=== PATIENT | male | born 1965 | race Caucasian/White ===

== ENCOUNTER 2025-04-13 11:21 | Inpatient (IN) | payer OTHER, SELFPAY ==
[2025-04-13 03:28] VITALS: BP 155/110
--- NOTE | 2025-04-13 07:53 | ED.MUSCINJ ---
HPI-Injury
<Chavez Wayne MD, Resident - Last Filed: 04/13/25 09:37>
General
Chief Complaint: Musculo-Skeletal Complaint
Source: patient and family
Time Seen by Provider: 04/13/25 07:21
History of Present Illness-Injury
Initial Injury comments:
Patient is 58-year-old male with no significant PMH who presented to [place] ED for right second toe pain. Patient works as a print binding worker, and approximately 2 weeks ago he dropped a dresser on his right foot. He was wearing steel toed boots at the
time of injury, and he reported no immediate pain or swelling in his foot. However, the weight of the object was sent off but still in the boot, which close to press against his toe. Over the subsequent 2-3 days, patient developed severe pain and
swelling in his right second toe. Patient tried heating his foot in a warm bath, which provided minimal relief. Patient continued working, though his activity was limited due to the pain and swelling. While working, patient wrapped his toe to
prevent it from rubbing against surrounding tissue. Patient developed an ulcer on his right second toe. Pain and swelling gradually got worse over the next few days, with acute worsening of pain, swelling, and subjective fever last night that
prompted him to present to the ED. Patient has never had an episode of toe pain or swelling like this before. No fatigue, chills, or shortness of breath. Patient reports mild intermittent chest pain, which he says is normal for him and he does
not find concerning. No history of gout or vascular disease. Patient has a couple drinks per week, and he eats a broad diet that includes fruits and vegetables.
Past History
<Chavez Wayne MD, Resident - Last Filed: 04/13/25 09:37>
Past History
ED Past Medical History: None
ED Past Surgical History: Other (Inguinal hernia surgery)
Social History
Tobacco: Smoker
Alcohol: Occasional
Drug: None
Personal:
Living: with family
Employment: Employed
Family History
Family History: Other (Noncontributory)
Review of Systems
<Chavez Wayne MD, Resident - Last Filed: 04/13/25 09:37>
Review of Systems
Constitutional: Reports fever (Subjective); Denies fatigue or chills
Respiratory: Denies trouble breathing
Cardiac: Reports chest pain
ABD/GI: Denies abdominal pain, nausea, vomiting or diarrhea
Musculoskeletal: Reports joint pain and joint swelling
Neurological: Denies weakness or numbness
Phy Exam
<Chavez Wayne MD, Resident - Last Filed: 04/13/25 09:37>
Physical Exam
Physical Exam:
General: NAD. Conversant.
MSK: Right second toe exquisitely TTP, markedly swollen, warm, erythematous. Particularly TTP adjacent to PIP. Diminished ROM due to swelling, pain. Serous fluid expressed from the lesion at medial aspect near PIP.
CV: RRR. S1, S2 noted. No M/R/G.
Pulm: CTAB. No wheezes or crackles.
Neuro: A&O x 3.
Injury Course
<Chavez Wayne MD, Resident - Last Filed: 04/13/25 09:37>
Orders/Labs/Results
Orders:
Orders
04/13/25 03:37
CR Foot - Right Min 3 Views Urgent
Comment:
Reason For Exam: r foot toe swelling
04/13/25 08:39
Basic Metabolic Panel Urgent
CRP [C-Reactive Protein] Urgent
Complete Blood Count/With Diff Urgent
ESR [Erythrocyte Sed Rate] Urgent
04/13/25 09:25
Vancomycin [Vancocin] 2,000 mg 0.9% Sodium Chloride 500 ml [Nss] 500 ml IV NOW
04/13/25 10:02
MR Right Le No Joint Without Routine
Comment:
Reason For Exam: eval OM 2nd toe
Recent pill cam endoscopy?: No
04/13/25 10:51
Admit/Transfer Patient As Directed
Co-Sign Provider:
Level of Care: Inpatient admission
Assign to:: Medical/Surgical
Physician / Group: Hospitalist
Diagnosis: Osteomyelitis, right second toe
Reason for Hospitalization: Osteomyelitis, right second toe
Expected length of stay greater than two midnights?: Yes
ELOS- Estimated Length of Stay in days: 2
I certify the patient meets the requirements for IP care: Yes
04/13/25 10:52
PRN Pain Medication Management As Directed
May give lesser potent ordered pain med per pt: Yes
preference::
Protocol:: Medication orders for pain may be administered in a
manner that supports deferring to patient preference
when the pt is:
- Requesting an ordered lesser potent pain medication.
Least to most potent pain medications are defined
as: acetaminophen < NSAID < tramadol < opioids
(morphine, oxycodone, hydromorphone).
- Requesting a lesser dose of the same medication IF
ORDERED.
- Requesting a less intrusive route of administration
if both routes are prescribed by the provider (PO <
IV).
04/13/25 10:55
Code Status As Directed
Resuscitation Status: Full Code
Abnormal Lab Results
04/13/25
08:39
MCHC 32.5 L g/dL
(33.0-37.0)
Glucose 120 H mg/dl
(70-99)
04/13/25 08:39
04/13/25 08:39
<Gregg Feldman, DO - Last Filed: 04/13/25 14:33>
Orders/Labs/Results
Orders:
Orders
04/13/25 03:37
CR Foot - Right Min 3 Views Urgent
Comment:
Reason For Exam: r foot toe swelling
04/13/25 08:39
Basic Metabolic Panel Urgent
CRP [C-Reactive Protein] Urgent
Complete Blood Count/With Diff Urgent
ESR [Erythrocyte Sed Rate] Urgent
04/13/25 09:25
Vancomycin [Vancocin] 2,000 mg 0.9% Sodium Chloride 500 ml [Nss] 500 ml IV NOW
04/13/25 10:02
MR Right Le No Joint Without Routine
Comment:
Reason For Exam: eval OM 2nd toe
Recent pill cam endoscopy?: No
04/13/25 10:51
Admit/Transfer Patient As Directed
Co-Sign Provider:
Level of Care: Inpatient admission
Assign to:: Medical/Surgical
Physician / Group: Hospitalist
Diagnosis: Osteomyelitis, right second toe
Reason for Hospitalization: Osteomyelitis, right second toe
Expected length of stay greater than two midnights?: Yes
ELOS- Estimated Length of Stay in days: 2
I certify the patient meets the requirements for IP care: Yes
04/13/25 10:52
PRN Pain Medication Management As Directed
May give lesser potent ordered pain med per pt: Yes
preference::
Protocol:: Medication orders for pain may be administered in a
manner that supports deferring to patient preference
when the pt is:
- Requesting an ordered lesser potent pain medication.
Least to most potent pain medications are defined
as: acetaminophen < NSAID < tramadol < opioids
(morphine, oxycodone, hydromorphone).
- Requesting a lesser dose of the same medication IF
ORDERED.
- Requesting a less intrusive route of administration
if both routes are prescribed by the provider (PO <
IV).
04/13/25 10:55
Code Status As Directed
Resuscitation Status: Full Code
Abnormal Lab Results
10/26/25
08:39
MCHC 32.5 L g/dL
(33.0-37.0)
Glucose 120 H mg/dl
(70-99)
04/13/25 08:39
04/13/25 08:39
<Chavez Wayne MD, Resident - Last Filed: 04/13/25 09:37>
MDM/Problems Addressed
Differential Diagnosis Includes:
Fracture
Osteomyelitis
Cellulitis
Septic arthritis
Gout
Pseudogout
MDM/Problems Addressed:
Assessment: Patient is a 58-year-old male with no significant PMH who presents to the [place] ED with approximately 10 days of progressive right second toe pain (10/10 intensity) and swelling. Patient dropped a piece of furniture on his foot
approximately 2 weeks ago while wearing steel toe boot, which did not cause immediate injury but did cause swelling and pain in the subsequent days. Acute worsening of pain and swelling over the past day. Mild HTN in ED, otherwise vital signs
unremarkable. Subjective fever, otherwise no systemic symptoms. No leukocytosis. Physical exam remarkable for exquisitely tender, markedly swollen, warm, and erythematous right second toe. Foot x-ray shows erosive changes adjacent to right
second toe PIP concerning for osteomyelitis/infection.
Plan:
#Toe pain
Imaging: R foot x-ray
Labs: CBC, BMP, CRP, ESR
Consults: Podiatry
Vancomycin 2 g ordered
Plan for admission
<Chavez Wayne MD, Resident - Last Filed: 04/13/25 09:37>
*Pulse Oximetry
SaO2: 100
Oxygen Mode of Delivery: Room air
Patient hypoxic: no
*Critical Care Note
Total Time (30-74mins, 75-104mins- exclusive of procedures): Not Applicable
ED Attending Note
<Chavez Wayne MD, Resident - Last Filed: 04/13/25 09:37>
-
Portions of this chart may have been created with voice recognition software.� Occasional wrong word or��sound alike� substitutions may have occurred due to the inherent limitations of voice recognition software.
<Gregg Feldman, DO - Last Filed: 04/13/25 14:33>
ED Attending Note
Patient seen and examined by attending physician: Yes
I performed a history and physical exam of patient and discussed management with resident, I reviewed resident's note and agree with documented findings and plan of care.: Yes
ED Attending Note:
I reviewed and agree with history and treatment plan by Chavez Wayne MD. My exam revealed 60-year-old male mild hypertension, right toe second right toe swollen erythematous. Normal pulses bilateral feet. X-ray consistent with bony erosion
concerning for osteomyelitis. Admit to hospitalist, podiatry on-call notified. IV vancomycin ordered.
Discharge Plan
Departure
Patient Disposition: Admit
Date of Disposition: 04/13/25
Time of Disposition: 09:23
Admit to: Med/Surg
Presentation/result/management discussed w/ accepting MD/DO: Hospitalist
Condition: Good
Discharge Problem:
Osteomyelitis of second toe of right foot
Interventions
Interventions:
*Risk Screen - Suicide Last Done: 04/13/25 03:28
*General Assessment Last Done: 04/13/25 03:28
*Neglect/Abuse Screening Last Done: 04/13/25 03:28
*ED- Fall Risk Assessment Last Done: 04/13/25 08:04
*ED COVID-19 Vaccine History Last Done: 04/13/25 03:28
*ED Influenza Vaccine History Last Done: 04/13/25 03:28
*Nursing Disposition Last Done: 04/13/25 13:57
ED-Musculoskeletal Assessment Last Done: 04/13/25 07:05
Discharge Date and Time
Discharge Date/Time: 04/13/25 13:58
[2025-04-13 08:57] LABS: Hematocrit 42.2 % (39.0-52.0); Hemoglobin 13.7 g/dL (13.0-18.0); Mean Corp Hgb Conc. 32.5 g/dL (33.0-37.0); Mean Corpuscular Volume 89.6 fL (80.0-94.0); Nucleated Red Blood Cells % 0 % (-); Platelet Count 275 10^3/uL (130-400); Red Cell Dist. Width 13.2 % (11.5-14.5)
[2025-04-13 09:13] LABS: Blood Urea Nitrogen 13 mg/dl (9-20); Calcium 9.1 mg/dl (8.4-10.2); Carbon Dioxide 29 mmol/L (22-30); Chloride 104 mmol/L (98-107); Glucose 120 mg/dl (70-99); Potassium 4.3 mmol/L (3.5-5.1); Sodium 135 mmol/L (135-145); eGFR > 60.00
[2025-04-13 09:16] LABS: C-Reactive Protein < 5.00 mg/L (0.0-10.00)
[2025-04-13 09:18] VITALS: BP 137/95
[2025-04-13] MEDS: VANCOCIN 540 MG IV (09:41)
--- NOTE | 2025-04-13 10:00 | W.PN.UPDATE ---
Update Note
Progress Note Update
60M w/ R 2nd toe wound concern for underlying OM
- will obtain MRI for tentative surgical planning
- continue abx
- PWB R heel
- elevate 2-3 pillows
- full consult note to follow
--- NOTE | 2025-04-13 11:03 | W.PN.UPDATE ---
Update Note
Progress Note Update
I saw and examined the patient.
The Resident note was reviewed and I agree with the note.
This serves as an addendum to the H&P dictated by Tj Haas on 04/13/2025.
Comment: Patient is 60 years old male with no significant past medical history came into the hospital with pain swelling and erythema of the right second toe. Patient had trauma on his second toe after heavy dresser dropped into his right foot.
Patient right foot has been progressively getting worse with more edema, erythema, and tenderness and noticed some oozing from the medial aspect of the right second toe. No fevers or chills.
Physical exam:
General: Well Developed, Well Nourished and No Apparent Distress
HEENT: Normocephalic, Atraumatic and Moist Mucous Membranes
Respiratory: Clear to Auscultation; Negative Wheezes, Rales or Rhonchi
Cardiac: Regular Rhythm and S1/S2
GI: Soft, Nontender and Nondistended
Musculoskeletal: No Clubbing, No Cyanosis and No Edema. Right second toe with and sausage form' with erythema, edema, tenderness, and discharge present.
Neuro: Awake, Alert and Oriented
Psych: Calm
A/P:
Right second toe cellulitis, rule out osteomyelitis--> IV antibiotics, pain control, MRI of the right foot, podiatry and ID eval.
--- NOTE | 2025-04-13 11:25 | HPS.HSE ---
Family Physician
-
Family Physician: Chavez Yeager
Chief Complaint
-
Pain, swelling right second toe
History of Present Illness
58-year-old male with no significant past medical history presented to the ER reporting pain and swelling of the right second toe. He works for a moving company, while at work he reports dropping a heavy weight dresser onto his right foot. He was
wearing steel toe boots at that time, no immediate swelling/open wounds at the time of injury. In the next couple of days he noticed pain with redness that has gradually worsened over time. He also noticed some oozing from the medial aspect of the
right second toe (clear fluid). Patient denies fever/chills. He was able to walk on his foot, but it was very painful. He did not take any pain medications interim.
ED course�vitals stable, labs unremarkable. X-ray foot�findings concerning for osteomyelitis.
History of MRSA +.
Medical History
Past Medical History
Past Medical History: Reports None
Past Surgical History: Reports None
Social History
Tobacco: Non-smoker
Alcohol: None
Drug: None
Personal: Single
Living: Alone
Employment: Employed
Family History
Family History: Not pertinent
Allergies / Home Medications
Allergies reflects when Allergies were last updated in [facility].
Home Medications with original date entered in [facility]
Allergy/Medication List:
Allergies
Allergy/AdvReac Type Severity Reaction Status Date / Time
Tetanus Vaccines and Toxoid Allergy RASH, FEVER Verified 04/13/25 03:27
(Tetanus)
Home Medications
No Meds [No Current Medications] 04/13/25
Review of Systems
-
A 12 point ROS was completed and negative except as noted: Yes
Physical Exam
Vital Signs
Vital Signs
Temp Pulse Resp BP Pulse Ox
98.4 F 96 18 137/95 100
04/13/25 03:28 04/13/25 03:28 04/13/25 03:28 04/13/25 09:18 04/13/25 08:12
Physical Exam
General: Well Developed, Well Nourished and No Apparent Distress
HEENT: NormoCephalic and Atraumatic
Respiratory: Clear
Cardiac: S1/S2 and Regular Rhythm
GI: Soft, Non Tender, Non Distended and Normal Bowel Sounds
Musculoskeletal: Other (Swelling and redness of the right second toe. Punctum on the medial surface of the right second toe, oozing clear fluid. DP pulse 2+. Patient is able to wiggle his toes. Sensations intact. Range of motion normal in the
ankle joint.)
Skin: Warm and Dry
Neuro: Awake, Alert, Oriented and AO x 3
Psych: Calm
Laboratory Results
-
04/13/25 08:39
04/13/25 08:39
Impression/Plan
-
IMPRESSION:
60-year-old male with swelling and pain of the right second toe s/p trauma. No open wound noted except for punctum on the medial aspect draining serous fluid.
PLAN:
#Osteomyelitis of second right toe
Patient is afebrile, normal white count
Labs unremarkable, normal renal function.
X-ray with evidence concerning for osteomyelitis
MRI pending
Podiatry consulted
Open exploration/OR tomorrow pending MRI
Continue vancomycin
Partial weightbearing
Patient with history of MRSA positive.
ID consulted
Appreciate recommendations
DVT prophylaxis�heparin subcu
Diet�regular
Full code
--- NOTE | 2025-04-13 11:49 | CM ---
manager of software reviewed patient's chart and met with patient and patient will be admitted with right 2nd toe pain. Patient reports he lives alone in a multilevel home, is independent with adl's and ambulation, no dme, patient drives, patient works as
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
PCP: Dr. Chavez Yeager
Pharmacy: [facility] in [place]
[2025-04-13 14:16] VITALS: BP 128/96
--- NOTE | 2025-04-13 14:51 | CON.ID ---
Consultation
-
Date/Time Consultation Requested: 04/13/25 11:24
Date/Time Consultation Performed: 04/13/25 14:53
Requesting Provider: Dr Haas
Performing Provider: Dr Bagley
Reason for Consultation: 2nd toe osteomyelitis
Chief Complaint / Past History
Chief Complaint
second toe pain
History of Present Illness
Mr Young is a 60 year old male without significant past medical history who presented here for pain in the right second toe. Approximately two weeks ago he dropped a dresser on the right foot; there was no immediate pain but over the next two to
three days he developed severe pain and swelling of the second toe. He subsequently developed an ulcer over the digit. He progressed to developing subjective fever which prompted him to present to the ER. No history of gout or vascular disease.
Since arrival here he has been afebrile, bp stable, wbc 7.6, hgb 13.7, plt 275, glucose 120, ESR 11, na 135, cr 0.7, crp <5.0, 04/13 xray diffuse soft tissue swelling and erosive changes along the distal proximal phalanx and base of the middle
phalanx. Seen by podiatry and planned for tentative surgery.
Past History
Past Medical History: None
Past Surgical History: None
Allergy History:
Tetanus Vaccines and Toxoid (Tetanus) Allergy (Verified 04/13/25 03:27)
RASH, FEVER
Medications Reviewed: Yes
Social History
Tobacco: Non-Smoker
Alcohol: None
Drug: None
Family History
Family History: Not Pertinent
Review of Systems
Vital Signs
Temp Pulse Resp BP Pulse Ox
98.4 F 74 18 128/96 99
04/13/25 03:28 04/13/25 13:48 04/13/25 14:16 04/13/25 14:16 04/13/25 13:48
Physical Exam
Physical Exam
Constitutional: No Acute Distress
Cardiovascular: Regular Rate and S1/S2; Negative Murmur or Rub
Pulmonary: Clear and Symmetric; Negative Wheezes, Rales or Rhonchi
Gastrointestinal: Soft, Non Tender, Non Distended and Normal Bowel Sounds
Extremities: Other (marked swelling of the right second digit, small wound with serous drainage)
Skin: Warm and Dry; Negative Rash or Jaundice
Lab / Diagnostic Study Results
04/13/25 08:39
04/13/25 08:39
Abs Immat Gran (auto) 0.0 10^3/uL (0-0.05) 04/13/25 08:39
Absolute Neuts (auto) 4.1 10^3/uL (1.4-6.5) 04/13/25 08:39
Absolute Lymphs (auto) 2.4 10^3/uL (1.2-3.4) 04/13/25 08:39
Absolute Monos (auto) 0.6 10^3/uL (0.1-0.6) 04/13/25 08:39
Absolute Basos (auto) 0.1 10^3/uL (0-0.2) 04/13/25 08:39
Immature Gran % 0.4 % (0-0.5) 04/13/25 08:39
Neutrophils % 54.2 % (42.2-75.2) 04/13/25 08:39
Lymphocytes % 32.2 % (20.5-51.1) 04/13/25 08:39
Monocytes % 8.1 % (1.7-9.3) 04/13/25 08:39
Eosinophils % 4.2 % (0-6) 04/13/25 08:39
Basophils % 0.9 % (0-2) 04/13/25 08:39
ESR 11 mm/hour (0-20) 04/13/25 08:39
C-Reactive Protein < 5.00 mg/L (0.0-10.00) 04/13/25 08:39
Assessment / Plan
Osteomyelitis of the right 2nd digit
- blood cultures x2 today
- MRI foot pending
- a1c pending
- continue vancomycin, add zosyn for present
- will follow up podiatry plan
--- NOTE | 2025-04-13 15:40 | PTCARENOTE ---
pt arrived to [facility] room 329, A/o x 3, walked to bed from stretcher, VS taken
[2025-04-13] MEDS: DILAUDID 0.5 MG IV ×2 (16:03→22:19)
[2025-04-13] MEDS: ZOSYN 50 IV ×2 (16:07→22:19)
[2025-04-13 16:10] VITALS: BP 140/90
--- NOTE | 2025-04-13 18:25 | PHA.VAN.IN ---
Assessment
- Assessment
Renal Function: Unknown baseline
Maximum Temperature: 98.4
Concomitant Antimicrobials: piperacillin-tazobactam
AUC Dosing Plan
- Dosing Variables
Dosing Weight (kg): 68
Dosing CrCl (ml/min): 102
Vd coefficient (L/kg): 0.7
- Empiric Dosing
Initial / Loading Dose: 2000 mg (29 mg/kg) 04/13 941
Maintenance Regimen: 1000 mg q12h starting 04/14 06, give 500 mg x 1 04/13 2000
Estimated AUC (mcg*h/mL): 493
Estimated Peak (mcg*h/mL): 32
Estimated Trough (mcg/ml): 12
Estimated Half Life (H): 7.8
- Monitoring
No levels ordered at this time: consider in the upcoming days
Pharmacokinetics Vancomycin I
- -
Patient Age: 60
Patient Sex: Male
Vancomycin Day #: 1
Indication: Bone And Joint
Requesting Provider: Dr Lynne Haas (Resident), Dr Bagley
Pertinent Antimicrobial Allergies:
no pertinent allergies
Height / Weight:
Height 5 ft 7 in
Actual Weight 68 kg
- Vital Signs / Lab Results
Temp Pulse Resp BP Pulse Ox
97.9 F 76 20 140/90 99
04/13/25 16:10 04/13/25 16:10 04/13/25 16:10 04/13/25 16:10 04/13/25 16:10
Lab Results - Hematology
04/13/25
08:39
WBC 7.6
Lab Results - Chemistry
04/13/25
08:39
BUN 13
Creatinine 0.7
[2025-04-13] MEDS: VANCOCIN HCL 500 MG 100 IV (20:58)
[2025-04-13 23:35] VITALS: BP 117/72
[2025-04-14] MEDS: ZOSYN 50 IV ×4 (03:58→21:10)
[2025-04-14] MEDS: VANCOCIN 200 IV ×2 (06:05→17:16)
[2025-04-14 06:26] LABS: Hematocrit 39.8 % (39.0-52.0); Hemoglobin 13.1 g/dL (13.0-18.0); Mean Corp Hgb Conc. 32.9 g/dL (33.0-37.0); Mean Corpuscular Volume 90.2 fL (80.0-94.0); Platelet Count 260 10^3/uL (130-400); Red Cell Dist. Width 13.4 % (11.5-14.5)
[2025-04-14 06:55] LABS: ALT (SGPT) 54 U/L (0-50); AST (SGOT) 44 U/L (17-59); Albumin 3.5 g/dl (3.5-5.0); Alkaline Phosphatase 92 U/L (38-126); Blood Urea Nitrogen 16 mg/dl (9-20); Calcium 8.8 mg/dl (8.4-10.2); Carbon Dioxide 28 mmol/L (22-30); Chloride 107 mmol/L (98-107); Estimated Creatinine Clearance 90 ml/min; Glucose 98 mg/dl (70-99); Potassium 4.5 mmol/L (3.5-5.1); Sodium 138 mmol/L (135-145); Total Protein 6.5 g/dl (6.3-8.2); eGFR > 60.00
--- NOTE | 2025-04-14 07:42 | W.PN.UPDATE ---
Update Note
Progress Note Update
60M w/ R 2nd toe edema and small wound to subq concern for underlying OM
- will obtain MRI for tentative surgical planning
- continue abx
- PWB R heel
- elevate 2-3 pillows
- will continue to monitor
[2025-04-14 07:49] VITALS: BP 159/93
[2025-04-14 08:57] LABS: Glycohemoglobin (HgbA1c) 5.6 % (4.0-5.9)
--- NOTE | 2025-04-14 09:02 | PHA.VAN.FU ---
Vancomycin Assessment / Plan
- Assessment
Renal Function: Stable
WBC's are: WNL
In the past 24 hrs, patient has been: Afebrile
Concomitant Antimicrobials: piperacillin/tazobactam
- Dosing Plan
Continue: Vanc 1000mg Q12H
- Monitoring Plan
No level(s) ordered at this time: consider levels in next few days
- Follow Up
Pharmacy will continue to follow.
Vancomycin Follow UP
- -
Patient Age: 60
Patient Sex: Male
Vancomycin Day #: 2
Indication: Bone And Joint
Requesting Provider: Dr Lynne Haas (Resident) / Dr Bagley
Pertinent Antimicrobial Allergies:
no pertinent antibiotic allergies
Height / Weight:
Height 5 ft 7 in
Actual Weight 68 kg
- Vital Signs / Lab Results
Temp Pulse Resp BP Pulse Ox
97.2 F 68 16 159/93 98
04/14/25 07:49 04/14/25 07:49 04/14/25 07:49 04/14/25 07:49 04/14/25 07:49
Lab Results - Hematology
04/13/25 04/14/25
08:39 05:53
WBC 7.6 6.3
Lab Results - Chemistry
04/13/25 04/14/25
08:39 05:53
BUN 13 16
Creatinine 0.7 0.8
Estimated Creat Clear 90
Albumin 3.5
--- NOTE | 2025-04-14 11:30 | W.PN.HOSP.TC ---
Today's Communication/Plan
-
Await MRI of right foot.
Continue with antibiotics
Assessment / Plan
Assessment / Plan
IMPRESSION:
60-year-old male with swelling and pain of the right second toe s/p trauma. No open wound noted except for punctum on the medial aspect draining serous fluid.
PLAN:
# Cellulitis of the right second toe with possible osteomyelitis of second toe-x-ray shows erosive changes along the distal aspect of the proximal phalanx as well as the base of the middle phalanx.
Patient is afebrile, normal white count
Labs unremarkable, normal renal function.
X-ray with evidence concerning for osteomyelitis
MRI pending
Podiatry input noted
Open exploration/OR tomorrow pending MRI
Continue vancomycin
Partial weightbearing
Patient with history of MRSA positive.
ID consulted
DVT prophylaxis�heparin subcu
Diet�regular
Full code
Anticipated Discharge: > 48 hours
Subjective/Interval History
-
Date of Service: April 14, 2025
Pain from the right second toe manageable with the medication. No fever chills. No nausea vomiting. Denies shortness of breath.
Objective Data
-
Labs:
Laboratory Results
04/14/25
05:53
WBC 6.3
Hgb 13.1
Hct 39.8
Plt Count 260
Sodium 138
Potassium 4.5
Chloride 107
Carbon Dioxide 28
BUN 16
Creatinine 0.8
Glucose 98
Calcium 8.8
Total Bilirubin 1.0
AST 44
ALT 54 H
Alkaline Phosphatase 92
Vital Signs:
Vital Signs
Temp Pulse Resp BP Pulse Ox
97.2 F 68 16 159/93 98
04/14/25 07:49 04/14/25 07:49 04/14/25 07:49 04/14/25 07:49 04/14/25 07:49
Physical Exam
-
General: No Apparent Distress
Respiratory: Clear to Auscultation and Non Labored Respirations; Negative Accessory Resp Muscle Use
Cardiac: Regular Rhythm and S1/S2; Negative Tachycardic
GI: Soft
Musculoskeletal: Other (Right second toe swollen; in dressing)
Neuro: AO x 3
Psych: Calm; Negative Confused
Data Reviewed
-
Labs: Labs Reviewed by me
[2025-04-14] MEDS: TORADOL 10 MG IV ×2 (12:12→22:09)
--- NOTE | 2025-04-14 13:10 | W.PN.ID1 ---
Date of Service
Date of Service: April 14, 2025
Today's Communication
- continue vancomycin, zosyn for present
- will follow up podiatry plan
Assessment / Plan
Osteomyelitis of the right 2nd digit
- blood cultures x2 today
- MRI foot pending
- a1c normal
- continue vancomycin, zosyn for present
- will follow up podiatry plan
Chief Complaint
-: Other (osteomyelitis)
Subjective / Review of Systems
afebrile
bp stable
digit less erythematous
Vital Signs / Physical Exam
Vital Signs
Vital Signs
Temp Pulse Resp BP Pulse Ox
97.2 F 68 16 159/93 98
04/14/25 07:49 04/14/25 07:49 04/14/25 07:49 04/14/25 07:49 04/14/25 07:49
Physical Exam
Constitutional: No Acute Distress
Cardiovascular: Regular Rate
Pulmonary: Symmetric and Non Labored
Gastrointestinal: Non Distended
Skin: Warm and Dry; Negative Rash or Jaundice
Wound: Other (digit remains swollen to about x2 the size of normal, erythema has resolved)
Objective Data
Lab Data
Lab Results
04/14/25 05:53
04/14/25 05:53
ESR 11 mm/hour (0-20) 04/13/25 08:39
Estimated Creat Clear 90 ml/min 04/14/25 05:53
Total Bilirubin 1.0 mg/dl (0.2-1.3) 04/14/25 05:53
AST 44 U/L (17-59) 04/14/25 05:53
ALT 54 U/L (0-50) H 04/14/25 05:53
Alkaline Phosphatase 92 U/L (38-126) 04/14/25 05:53
C-Reactive Protein < 5.00 mg/L (0.0-10.00) 04/13/25 08:39
Most recent labs reviewed.
Micro Results:
04/14/25 05:53 Blood Culture - Pending
Blood/Venous
04/13/25 17:51 Blood Culture - Pending
Blood/Venous
04/13/25 17:19 MRSA Screen - Pending
Nose
[2025-04-14 15:35] VITALS: BP 159/95
--- NOTE | 2025-04-14 15:47 | CM ---
CM met with Alfred who was admitted toe pain in his right toe. He lives alone in a multilevel home, is independent with adl's and ambulation, no dme, drives in the community.
Plan: Discharge to home when medically ready.
PCP: Dr. Chavez Yeager
Pharmacy: [facility] in [place]
[2025-04-14 23:30] VITALS: BP 151/95
[2025-04-15] MEDS: ZOSYN 50 IV ×4 (04:52→21:32)
[2025-04-15] MEDS: VANCOCIN 200 IV ×2 (05:36→17:58)
[2025-04-15 07:07] VITALS: BP 159/96
--- NOTE | 2025-04-15 08:19 | PHA.VAN.FU ---
Vancomycin Assessment / Plan
- Assessment
Renal Function: No New Labs Today
In the past 24 hrs, patient has been: Afebrile
Concomitant Antimicrobials: piperacillin/tazobactam
- Dosing Plan
Continue: Vanc 1000mg Q12H
- Monitoring Plan
Peak Level: 04/15 21:00
Trough Level: 04/16 05:30
Monitoring Comments: levels to be drawn after 4th maintenance dose
BUN & SCR ordered per protocol
- Follow Up
Pharmacy will continue to follow.
Vancomycin Follow UP
- -
Patient Age: 60
Patient Sex: Male
Vancomycin Day #: 3
Indication: Bone And Joint
Requesting Provider: Dr Lynne Haas (Resident) / Dr Bagley
Pertinent Antimicrobial Allergies:
no pertinent antibiotic allergies
Height / Weight:
Height 5 ft 7 in
Actual Weight 68 kg
- Vital Signs / Lab Results
Temp Pulse Resp BP Pulse Ox
97.4 F 72 16 159/96 98
04/15/25 07:07 04/15/25 07:07 04/15/25 07:07 04/15/25 07:07 04/15/25 07:07
Lab Results - Hematology
04/13/25 04/14/25
08:39 05:53
WBC 7.6 6.3
Lab Results - Chemistry
04/13/25 04/14/25
08:39 05:53
BUN 13 16
Creatinine 0.7 0.8
Estimated Creat Clear 90
Albumin 3.5
Microbiology Results
04/13/25 17:19 MRSA Screen - Final
Nose No Methicillin Resistant Staphylococcus aureus isolated.
04/14/25 05:53 Blood Culture - Preliminary
Blood/Venous No Growth in 24 hours- Final report to follow
04/13/25 17:51 Blood Culture - Preliminary
Blood/Venous No Growth in 24 hours- Final report to follow
--- NOTE | 2025-04-15 10:32 | W.PN.HOSP.TC ---
Today's Communication/Plan
-
EKG preop
Continue with antibiotics
Await podiatry input
Assessment / Plan
Assessment / Plan
IMPRESSION:
60-year-old male with swelling and pain of the right second toe s/p trauma. No open wound noted except for punctum on the medial aspect draining serous fluid.
PLAN:
# Acute cellulitis of the right second toe with osteomyelitis of second toe-x-ray shows erosive changes along the distal aspect of the proximal phalanx as well as the base of the middle phalanx.
MRI of the right foot is positive for cellulitis and osteomyelitis
Patient is afebrile, normal white count
Labs unremarkable, normal renal function.
Continue vancomycin and Zosyn
Partial weightbearing
Patient with history of MRSA positive.
Continue with antibiotics per ID.
Await podiatry input from today.
Preop cardiac eval
Patient without a history of CAD. No current chest pain or shortness of breath. No medical history.
No history of hypertension, diabetes, chronic kidney disease.
Patient is active and activity not limited by SOB or CP.
Will get EKG and if no acute changes ok to proceed with surgery.
DVT prophylaxis�heparin subcu
Diet�regular
Full code
Anticipated Discharge: > 48 hours
Subjective/Interval History
-
Date of Service: April 15, 2025
No fevers or chills.
Denies any nausea or vomiting. Tolerating antibiotics.
Denies any chest pain or shortness of breath.
Continued right second toe pain.
Objective Data
-
Vital Signs:
Vital Signs
Temp Pulse Resp BP Pulse Ox
97.4 F 72 16 159/96 98
04/15/25 07:07 04/15/25 07:07 04/15/25 07:07 04/15/25 07:07 04/15/25 07:07
Physical Exam
-
General: Comfortable
Respiratory: Non Labored Respirations; Negative Accessory Resp Muscle Use
Cardiac: Regular Rhythm and S1/S2; Negative Tachycardic
GI: Soft
Musculoskeletal: No Edema and Other (rt second toe with redness and swelling)
Neuro: AO x 3
Psych: Calm
Data Reviewed
-
MRI: Report Reviewed by me (MRI of the right foot)
Labs: Labs Reviewed by me
--- NOTE | 2025-04-15 11:59 | W.PN.ID1 ---
Date of Service
Date of Service: April 15, 2025
Today's Communication
- MRI foot osteomyelitis of second digit proximal and middle phalange, probable septic arthritis of second pip join - reviewed with patient
- continue vancomycin, zosyn for present
- will follow up podiatry plan
Assessment / Plan
Osteomyelitis of the right 2nd digit
- blood cultures x2 today
- MRI foot osteomyelitis of second digit proximal and middle phalange, probable septic arthritis of second pip join - reviewed with patient
- continue vancomycin, zosyn for present
- will follow up podiatry plan
Chief Complaint
-: Other (osteomyelitis)
Subjective / Review of Systems
afebrile
bp stable
Vital Signs / Physical Exam
Vital Signs
Vital Signs
Temp Pulse Resp BP Pulse Ox
97.4 F 72 16 159/96 98
04/15/25 07:07 04/15/25 07:07 04/15/25 07:07 04/15/25 07:07 04/15/25 07:07
Physical Exam
Constitutional: No Acute Distress
Cardiovascular: Regular Rate and S1/S2; Negative Murmur or Rub
Pulmonary: Clear and Symmetric; Negative Wheezes or Rales
Gastrointestinal: Soft, Non Tender, Non Distended and Normal Bowel Sounds
Extremities: Other (2nd digit remains swollen, no warmth or erythema, small draining area has resolved)
Skin: Warm and Dry; Negative Rash or Jaundice
Objective Data
Lab Data
Lab Results
04/14/25 05:53
04/14/25 05:53
ESR 11 mm/hour (0-20) 04/13/25 08:39
Estimated Creat Clear 90 ml/min 04/14/25 05:53
Total Bilirubin 1.0 mg/dl (0.2-1.3) 04/14/25 05:53
AST 44 U/L (17-59) 04/14/25 05:53
ALT 54 U/L (0-50) H 04/14/25 05:53
Alkaline Phosphatase 92 U/L (38-126) 04/14/25 05:53
C-Reactive Protein < 5.00 mg/L (0.0-10.00) 04/13/25 08:39
Most recent labs reviewed.
Micro Results:
04/13/25 17:19 MRSA Screen - Final
Nose No Methicillin Resistant Staphylococcus aureus isolated.
04/14/25 05:53 Blood Culture - Preliminary
Blood/Venous No Growth in 24 hours- Final report to follow
04/13/25 17:51 Blood Culture - Preliminary
Blood/Venous No Growth in 24 hours- Final report to follow
[2025-04-15 15:11] VITALS: BP 142/102
[2025-04-15] MEDS: TORADOL 10 MG IV (15:50)
--- NOTE | 2025-04-15 22:37 | PTCARENOTE ---
per hospitalist note, pt potentially going to OR for R 2nd toe. no active NPO order. KIRIT garza notified. new orders received for NPO. POC ongoing.
[2025-04-15 23:00] VITALS: BP 129/85
[2025-04-16] MEDS: ZOSYN 50 IV ×2 (04:14→09:15)
[2025-04-16 05:52] LABS: Blood Urea Nitrogen 14 mg/dl (9-20); Estimated Creatinine Clearance 90 ml/min
[2025-04-16] MEDS: VANCOCIN 200 IV (06:14)
--- NOTE | 2025-04-16 07:32 | W.PN.UPDATE ---
Update Note
Progress Note Update
60M w/ R 2nd toe OM
- Reviewed and discussed Right foot MRI with patient. Discussed treatment options including abx therapy, biopsy, and amputation. After discussing risks, benefits, and possible outcomes patient wishes to pursue abx treatment with the understanding
that it is not curative. Discussed with patient risk of future amputation as well as clinical signs of infection necessitating return to hospital for treatment.
- abx per ID recs
- PWB R heel
- elevate 2-3 pillows
- may follow up in office
[2025-04-16 07:52] VITALS: BP 172/96
--- NOTE | 2025-04-16 08:16 | PHA.VAN.FU ---
Vancomycin Assessment / Plan
- Assessment
Renal Function: Stable
In the past 24 hrs, patient has been: Afebrile
Concomitant Antimicrobials: piperacillin/tazobactam
- Assessment - Therapeutic Drug Monitoring
Extrapolated Cmax (mcg/mL): 26.6
Peak level was drawn: Appropriately (drawn ~2H after end of previous infusion)
Extrapolated Cmin (mcg/mL): 12.2
Trough Drawn: Appropriately
Levels were drawn: At steady state (levels drawn after 4th maintenance dose)
Calculated AUC (mcg*h/mL): 445
Calculated ke: 0.0709
Calculated half life (H): 9.8
Calculated Vd (L): 63 (~0.9 L/kg)
Calculated Vanc CL (ml/min): 75
- Dosing Plan
Continue: Vanc 1000mg Q12H
- Monitoring Plan
Level(s) appropriate: Recheck trough at minimum of weekly intervals, Repeat sooner for changes in renal function or clinical status
Next Level Due (Date): ~04/23
- Follow Up
Pharmacy will continue to follow.
Vancomycin Follow UP
- -
Patient Age: 60
Patient Sex: Male
Vancomycin Day #: 4
Indication: Bone And Joint
Requesting Provider: Dr Lynne Haas (Resident) / Dr Bagley
Pertinent Antimicrobial Allergies:
no pertinent antibiotic allergies
Height / Weight:
Height 5 ft 7 in
Actual Weight 68 kg
- Vital Signs / Lab Results
Temp Pulse Resp BP Pulse Ox
98 F 74 16 172/96 95
04/16/25 07:52 04/16/25 07:52 04/16/25 07:52 04/16/25 07:52 04/16/25 07:52
Lab Results - Hematology
04/13/25 04/14/25
08:39 05:53
WBC 7.6 6.3
Lab Results - Chemistry
04/13/25 04/14/25 04/16/25
08:39 05:53 05:03
BUN 13 16 14
Creatinine 0.7 0.8 0.8
Estimated Creat Clear 90 90
Albumin 3.5
Microbiology Results
04/14/25 05:53 Blood Culture - Preliminary
Blood/Venous No Growth in 48 hours- Final report to follow
04/13/25 17:51 Blood Culture - Preliminary
Blood/Venous No Growth in 48 hours- Final report to follow
04/13/25 17:19 MRSA Screen - Final
Nose No Methicillin Resistant Staphylococcus aureus isolated.
Therapeutic Drug Monitoring
Vancomycin Peak 23.0 ug/ml (18-26) 04/15/25 21:00
Vancomycin Trough 13.0 ug/ml (5-20) 04/16/25 05:03
--- NOTE | 2025-04-16 11:58 | W.PN.HOSP.TC ---
Today's Communication/Plan
-
DC planning
Assessment / Plan
Assessment / Plan
IMPRESSION:
60-year-old male with swelling and pain of the right second toe s/p trauma. No open wound noted except for punctum on the medial aspect draining serous fluid.
PLAN:
# Acute cellulitis of the right second toe with osteomyelitis of second toe-x-ray shows erosive changes along the distal aspect of the proximal phalanx as well as the base of the middle phalanx.
MRI of the right foot is positive for cellulitis and osteomyelitis
Patient is afebrile, normal white count
Labs unremarkable, normal renal function.
Continue vancomycin and Zosyn
Partial weightbearing
Patient with history of MRSA positive.
Continue with antibiotics per ID.
Podiatry input noted.-Recommends surgical intervention including second amputation but the patient choosing to go on trial of antibiotics. Patient is aware Antibiotics may not work especially with the osteomyelitis. He understands the risks and
the benefit of both approaches. He will watch out for any worsening of his toe or any fever chills and then would return back.
Await ID input regarding home antibiotic choices.
DVT prophylaxis�heparin subcu
Diet�regular
Full code
Anticipated Discharge: Today
Subjective/Interval History
-
Date of Service: April 16, 2025
Denies any fever or chills. Right second toe pain is okay but requiring medications.
No nausea vomiting.
Objective Data
-
Labs:
Laboratory Results
04/16/25
05:03
BUN 14
Creatinine 0.8
Vital Signs:
Vital Signs
Temp Pulse Resp BP Pulse Ox
98 F 74 16 172/96 95
04/16/25 07:52 04/16/25 07:52 04/16/25 07:52 04/16/25 07:52 04/16/25 07:52
I&O
04/15/25 04/16/25 04/17/25
06:59 06:59 06:59
Intake Total 840 / 840
Balance 840 / 840
Physical Exam
-
General: No Apparent Distress
HEENT: Moist Mucous Membranes
Respiratory: Non Labored Respirations and Accessory Resp Muscle Use; Negative Clear to Auscultation
Cardiac: Regular Rhythm and S1/S2
Musculoskeletal: Other (Rt second toe swollen and red)
Neuro: AO x 3
Psych: Calm
Data Reviewed
-
Labs: Labs Reviewed by me
--- NOTE | 2025-04-16 12:37 | W.PN.ID1 ---
Date of Service
Date of Service: April 16, 2025
Today's Communication
augmentin x6 weeks
Assessment / Plan
Osteomyelitis of the right 2nd digit
- blood cultures x2 today
- MRI foot osteomyelitis of second digit proximal and middle phalange, probable septic arthritis of second pip join
- spoke with patient and recommended a 6 week course of IV antibiotics, he understands that this would require a PICC line placement and that he would not be able to lift more than 10 lbs while he has the PICC line. He is not willing to undergo
that procedure. We discussed that the underlying osteomyelitis can progress internally even with no external symptoms of osteomyelitis if treatment is inadequate and he expressed understanding. He says 'im going to pray.' He is aware that 6 weeks
of IV antibiotics is the recommendation for osteomyelitis but is requesting oral therapy instead, he understands that this therapy may be inadequate. He has been offered amputation and has refused that as well.
- plan 6 weeks of augmentin
- follow up with podiatry
Chief Complaint
-: Other (osteomyelitis)
Subjective / Review of Systems
afebrile
bp stable
tolerating current therapies
requesting discharge
Vital Signs / Physical Exam
Vital Signs
Vital Signs
Temp Pulse Resp BP Pulse Ox
98 F 74 16 172/96 95
04/16/25 07:52 04/16/25 07:52 04/16/25 07:52 04/16/25 07:52 04/16/25 07:52
Physical Exam
Constitutional: No Acute Distress
Cardiovascular: Regular Rate
Pulmonary: Symmetric and Non Labored
Gastrointestinal: Non Tender and Non Distended
Objective Data
Lab Data
Lab Results
04/14/25 05:53
04/16/25 05:03
ESR 11 mm/hour (0-20) 04/13/25 08:39
Estimated Creat Clear 90 ml/min 04/16/25 05:03
Total Bilirubin 1.0 mg/dl (0.2-1.3) 04/14/25 05:53
AST 44 U/L (17-59) 04/14/25 05:53
ALT 54 U/L (0-50) H 04/14/25 05:53
Alkaline Phosphatase 92 U/L (38-126) 04/14/25 05:53
C-Reactive Protein < 5.00 mg/L (0.0-10.00) 04/13/25 08:39
Most recent labs reviewed.
Micro Results:
04/14/25 05:53 Blood Culture - Preliminary
Blood/Venous No Growth in 48 hours- Final report to follow
04/13/25 17:51 Blood Culture - Preliminary
Blood/Venous No Growth in 48 hours- Final report to follow
04/13/25 17:19 MRSA Screen - Final
Nose No Methicillin Resistant Staphylococcus aureus isolated.
--- NOTE | 2025-04-16 12:59 | W.DCSUMMARY ---
Discharge Summary
Discharge Data
Date of Admission: 04/13/25
Date of Discharge: 04/16/25
-
Pending Results: No
Hospital Course
Primary diagnosis:
Osteomyelitis of right second digit proximal and middle phalange, probable septic arthritis of second promial interphalangeal joint
Hospital course:
Patient with no significant past medical history presented with pain and swelling to the right second toe. 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 Over the several days he has noticed that has
increasing pain and redness that was send so he presented to the hospital. He was seen by discharge planner had MRI imaging of the foot which showed-
osteomyelitis of the second digit proximal and middle phalanges . Probable intervening septic arthritis of the second digit proximal interphalangeal joint.
Subcutaneous edema of the dorsal forefoot and plantar second digit soft tissues may reflect cellulitis. No discrete abscess.
Podiatry discussed treatment option including antibiotics, biopsy and amputation and patient wished to pursue antibiotic treatment with understanding that is not curative.
Patient discussed with ID who recommended IV antibiotics for 6 weeks, he wanted to pursue oral antibiotic choice again understanding the risk of incomplete treatment of infection, development of sepsis and poor outcomes.
He was discharged on oral Augmentin for 6 weeks. Advised to return to ER if he develops fever, chills, increasing swelling of the toe or the pain of the toe. His pain was managed with Toradol here so was switched to oral ibuprofen along with
Tylenol for pain control on discharge.
Consultants on board:
Podiatry-Jermain Brady
Infectious disease-Rama Hendrix
Portions of this chart may have been created with voice recognition software. Occasional wrong word or 'sound alike' substitutions may have occurred due to the inherent limitations of voice recognition software.
Discharge Plan
-
Patient Disposition: Home (Routine Discharge)
Discharge Diagnosis/Procedures: osteomyelitis of right second digit proximal and middle phalange, probable septic arthritis of second PIP joint
Diet: Regular
Activity: As tolerated
Driving Restrictions: As prior to admission
Bathing Restrictions: OK to Shower
Referrals:
Chavez Yeager DO [Family Provider, Family Practice] - in less than 1 week
Jermain Chairez DPM [Active, Orthopedics] - in one week
Prescriptions:
New
acetaminophen 325 mg Tablet
650 mg PO Q4HPRN PRN (Reason: mild pain) Qty: 1 0RF
ibuprofen 400 mg tablet
400 mg PO Q8H PRN (Reason: MODERATE PAIN) Qty: 50 0RF
amoxicillin-pot clavulanate 875-125 mg tablet
1 tab PO BID Qty: 90 0RF
Discharge Orders:
Discharge Patient (As Directed); Ordered 04/16/25
Ordered By: Rick Huffman
Discharge Date and Time
Print Language: HUNGARIAN
[2025-04-16 13:46] VITALS: BP 164/101
--- NOTE | 2025-04-16 13:54 | PTCARENOTE ---
Communicated with MD regarding patients blood pressure during shift and prior to discharge. Pt OK to be discharged and will need to f/u with PCP regarding BP.
--- NOTE | 2025-04-16 15:10 | CM ---
chart reviewed
patient discharge to home
IMM n/a
PLAN: Home no needs
drove self to hospital
== END 2025-04-16 14:12 | disposition home or self-care (01) | DRG 603 ==
LOC: 3 WEST ACU 11:21
PROVIDERS: Student in an Organized Health Care Education/Training Program; ADMITTING PHYSICIAN Hospitalist; ATTENDING PHYSICIAN Internal Medicine; CONSULT PHYSICIAN Student in an Organized Health Care Education/Training Program; EMERGENCY PHYSICIAN Emergency Medicine; FAMILY PHYSICIAN Family Medicine; OTHER PHYSICIAN Student in an Organized Health Care Education/Training Program
DX: L03.031 Cellulitis of right toe (principal); M86.9 Osteomyelitis, unspecified; F17.200 Nicotine dependence, unspecified, uncomplicated
CPT/HCPCS: 73630; 73718; 80048; 80053; 80202; 82565; 83036; 84520; 85025; 85027; 85652; 86140; 87040; 87070; 93005; 96365; 96366; 99285